=== PATIENT | female | born 1960 | race Caucasian/White ===

== ENCOUNTER → 2016-09-24 | Outpatient (CLI) | payer BC ==
[~2016-09-24] VITALS: Ht 160 cm; Wt 47.3 kg
[~2016-09-24] MED LIST: ADDERALL XR 2020 MG PO; ADDERALL XR 2525 MG PO; ARAVA20 MG PO; CARAFATE1 GM PO; CYANOCOBAL1000 MCG/2 IM; DAILY VALUE1 EACH PO; ELAVIL10 MG PO; ERGOCALCIF50000 UNIT PO; FOLIC ACID1 MG PO; GABAPENTIN100 MG PO; K-DUR10 MEQ PO; LASIX20 MG PO; MAXZIDE 75/501 EACH PO; NEURONTIN100 MG PO; NEURONTIN300 MG PO; NICOTINE PATCH1 EAC1 TD; ONDANSETRON HCL8 MG PO; ORENCIA250 MG/10 IV; PANTOPRAZOLE SO40 MG PO; PERCOCET 5/31 TABLET PO; PLAQUENIL200 MG PO; PRILOSEC40 MG PO; PRINIVIL10 MG PO; PROAIR HFA8.5 GM IH; PROPRANOLOL HCL40 MG PO; PROTONIX40 MG PO; SYNTHROID100 MCG PO; SYNTHROID150 MCG PO; SYNTHROID75 MCG PO; VITAMIN B-1100 MG PO
== END | disposition home or self-care (01) ==
LOC: AMB 11:30
PROC: 0D798ZZ Dilation of Duodenum, Via Natural or Artificial Opening Endoscopic (ICD-10-PCS; principal; 2016-09-24)
DX: K31.89 Other diseases of stomach and duodenum (principal); K26.9 Duodenal ulcer, unspecified as acute or chronic, without hemorrhage or perforation; Z98.84 Bariatric surgery status; E03.9 Hypothyroidism, unspecified; M19.90 Unspecified osteoarthritis, unspecified site; M79.7 Fibromyalgia; Z87.891 Personal history of nicotine dependence; K21.9 Gastro-esophageal reflux disease without esophagitis

== ENCOUNTER → 2016-10-30 | Outpatient (CLI) | payer BC ==
[~2016-10-30] VITALS: Ht 160 cm; Wt 47.2 kg
== END | disposition home or self-care (01) ==
LOC: AMB 11:30
PROC: 0D7A8ZZ Dilation of Jejunum, Via Natural or Artificial Opening Endoscopic (ICD-10-PCS; principal; 2016-10-30)
DX: K95.89 Other complications of other bariatric procedure (principal); Y83.2 Surgical operation with anastomosis, bypass or graft as the cause of abnormal reaction of the patient, or of later complication, without mention of misadventure at the time of the procedure; K31.89 Other diseases of stomach and duodenum; K28.9 Gastrojejunal ulcer, unspecified as acute or chronic, without hemorrhage or perforation; D64.9 Anemia, unspecified; F10.10 Alcohol abuse, uncomplicated; E83.51 Hypocalcemia; Z91.19 Patient's noncompliance with other medical treatment and regimen

== ENCOUNTER → 2016-11-14 | Outpatient (CLI) | payer BC ==
[~2016-11-14] VITALS: Ht 160 cm; Wt 44.5 kg
[2016-11-14 14:14] LABS: HEMATOCRIT 28.3 % (36.0-46.0); MCH 31.6 PG (29.0-34.0); MCHC 32.5 G/DL (30.0-36.0); MCV 97.3 FL (83-99); MEAN PLAT.VOLUME 9.6 uM^3 (9.5-12.4); PLATELET COUNT 296 K/uL (156-360); RBC DIS.WIDTH-CV 13.4 % (11.8-14.6); RBC DIS.WIDTH-SD 47.1 % (39-53); RED BLOOD COUNT 2.91 M/uL (3.80-5.20); WHITE BLOOD COUNT 4.8 K/uL (4.1-10.2)
[2016-11-14 14:31] LABS: ALKALINE PHOSPHATASE 113 IU/L (3-129); ANION GAP 6 MEQ/L (2-14); CHLORIDE 101 MEQ/L (99-109); GFR ESTIMATE (CALCULATED) > 59 mL/min/; GLUCOSE 80 mg/dL (70-99); IRON 24 MCG/DL (35-150); PREALBUMIN 17.1 mg/dL (10-40); SAMPLE HEMOLYSIS CHECK 0; SAMPLE ICTERIC CHECK 0; SAMPLE LIPEMIA CHECK 0; SODIUM 132 MEQ/L (136-147); TOTAL BILIRUBIN 0.3 MG/DL (0.0-1.0); UREA NITROGEN (BUN) 19 mg/dL (9-23)
== END | disposition home or self-care (01) ==
LOC: AMB 11-13 13:00
PROVIDERS: Surgery
PROC: 0D758ZZ Dilation of Esophagus, Via Natural or Artificial Opening Endoscopic (ICD-10-PCS; principal; 2016-11-14)
DX: K22.2 Esophageal obstruction (principal); I10 Essential (primary) hypertension; E03.9 Hypothyroidism, unspecified; K21.9 Gastro-esophageal reflux disease without esophagitis; Z87.891 Personal history of nicotine dependence; Z98.84 Bariatric surgery status
CPT/HCPCS: 80053; 82607; 82746; 83540; 84134; 84466; 85027